=== PATIENT | female | born 1955 | race African-American/Black ===

== ENCOUNTER 2016-12-20 10:46 | Emergency (ER) | payer MEDICAID ==
[~2016-12-20] VITALS: Ht 170.2 cm; Wt 127.5 kg
[2016-12-20 10:54] VITALS: BP 140/88
[2016-12-20] MEDS ORDERED: PROMETHAZINE-C118 M1 ORAL (10:56)
[2016-12-20] MEDS ORDERED: AZITHROMYCIN250 MG ORAL (10:56)
[2016-12-20 11:09] VITALS: BP 140/88
[2016-12-20] MEDS ORDERED: SPIRONOLACTONE100 MG ORAL (11:14)
[2016-12-20] MEDS ORDERED: ASPIRIN81 MG ORAL (11:14)
[2016-12-20] MEDS ORDERED: METOPROLOL TART25 MG ORAL (11:14)
[2016-12-20] MEDS ORDERED: CATAPRES0.3 MG ORAL (11:14)
[2016-12-20] MEDS ORDERED: LISINOPRIL5 MG ORAL (11:14)
[2016-12-20] MEDS ORDERED: METFORMIN HCL500 M1 ORAL (11:14)
[2016-12-20] MEDS ORDERED: [UNRECOGNIZED DRUG - REMARK] (11:14)
--- NOTE | 2016-12-20 11:48 | Emergency Room Report ---
History of Present Illness General Chief Complaint: Upper Respiratory Illness Source: Patient, EMS Present Illness HPI 61-year-old female presents to ED for evaluation. Per EMS patient called 911 because she was having cough with weakness x3 days. States she is yellowish phlegm with blood tinge sputum. Notes occasional chills and bodyaches. Denies any fever. Denies chest pain or shortness of breath. Patient states she is homeless and lives outside. Believe she has "walking pneumonia" because she has had this in the past. No other aggravating or relieving factors. Denies any other associated symptoms Allergies: Coded Allergies: No Known Allergies (Unverified , 08/19/12) Patient History Past Medical History: DM, COPD, psych hx Pertinent Family History: none Social History: Denies: alcohol use, drug use, smoking Now: No Immunizations: UTD Reviewed Nursing Documentation: PMH: Agreed, PSxH: Agreed Nursing Documentation-PMH Hx Cardiac Problems: Yes - MURMUR Hx Hypertension: Yes Hx COPD: Yes - BRONCHITIS, SMOKER Hx Diabetes: Yes Hx Gastrointestinal Problems: Yes - VIRAL GE History Of Psychiatric Problem: Yes - Bipolar Review of Systems All Other Systems: negative except mentioned in HPI Physical Exam Vital Signs Date Time Temp Pulse Resp B/P Pulse Ox O2 Delivery O2 Flow Rate FiO2 12/20/16 10:32 98.1 100 16 140/88 100 Room Air Sp02 EP Interpretation: reviewed, normal General Appearance: no apparent distress, alert, GCS 15, non-toxic Head: normocephalic, atraumatic Eyes: bilateral eye PERRL, bilateral eye normal inspection ENT: hearing grossly normal, normal pharynx, no angioedema, normal voice Neck: full range of motion, supple/symm/no masses Respiratory: chest non-tender, lungs clear, normal breath sounds, speaking full sentences Cardiovascular #1: regular rate, rhythm, no edema Cardiovascular #2: 2+ carotid (R), 2+ carotid (L), 2+ radial (R), 2+ radial (L) , 2+ dorsalis pedis (R), 2+ dorsalis pedis (L) Gastrointestinal: normal bowel sounds, non tender, soft, non-distended, no guarding, no rebound Rectal: deferred Genitourinary: normal inspection, no CVA tenderness Musculoskeletal: back normal, gait/station normal, normal range of motion, non- tender Neurologic: alert, oriented x3, responsive, motor strength/tone normal, sensory intact, speech normal Psychiatric: judgement/insight normal, memory normal, mood/affect normal, no suicidal/homicidal ideation Reflexes: 3+ bicep (R), 3+ bicep (L), 3+ tricep (R), 3+ tricep (L), 3+ knee (R) , 3+ knee (L) Skin: normal color, no rash, warm/dry, well hydrated Lymphatic: no adenopathy Medical Decision Making Diagnostic Impression: Primary Impression: Atypical pneumonia ER Course Hospital Course 61-year-old female presents to ED complaining of cough, bodyaches Differential diagnoses include: URI, pharyngitis, otitis media, asthma Clinical course Patient placed on stretcher. After initial history, physical exam reveals an elderly female in no acute distress. Bilateral TM unremarkable. No pharyngeal erythema. No tonsillar exudates. No lymphadenopathy. lungs clear. abdomen soft. Given age and presentation, patient living in assisted; we will treat as atypical pneumonia and prescribe antibiotics Diagnosis - atypical pneumonia Stable and discharged home with Rx Manuel. Instructed to followup with PMD. Return to ED if symptoms recur or worsen Last Vital Signs Date Time Temp Pulse Resp B/P Pulse Ox O2 Delivery O2 Flow Rate FiO2 12/20/16 11:09 98.1 100 16 140/88 100 Room Air Status: improved Disposition: HOME, SELF-CARE Condition: Stable Scripts Codeine/Promethazine Hcl* (PROMETHAZINE-CODEINE SYRUP*) 118 Ml Syrup 5 ML ORAL Q6H Y for For Cough for 7 Days, ML 0 Refills Prov: LEATHA FLOWERS M.D. 12/20/16 Azithromycin* (ZITHROMAX*) 250 Mg Tablet 250 MG ORAL DAILY, #6 TAB 0 Refills Take two tablets by mouth today, then take one tablet by mouth daily for four days Prov: LEATHA FLOWERS M.D. 12/20/16 Patient Instructions: Community-Acquired Pneumonia, Adult, [id number] LEATHA FLOWERS M.D. Dec 20, 2016 11:47
== END 2016-12-20 11:09 | disposition home or self-care (01) ==
LOC: EDBD 10:46 → EMR 10:50
DX: J18.9 Pneumonia, unspecified organism (principal); J44.9 Chronic obstructive pulmonary disease, unspecified; I10 Essential (primary) hypertension; E11.9 Type 2 diabetes mellitus without complications; F31.9 Bipolar disorder, unspecified
CPT/HCPCS: 99284

== ENCOUNTER 2017-07-07 19:14 | Emergency (ER) | payer MEDICAID ==
[~2017-07-07] VITALS: Ht 170.2 cm; Wt 127.5 kg
[~2017-07-07 19:14] MED LIST: ASPIRIN81 MG ORAL; AZITHROMYCIN250 MG ORAL; CATAPRES0.3 MG ORAL; LISINOPRIL5 MG ORAL; METFORMIN HCL500 M1 ORAL; METOPROLOL TART25 MG ORAL; PROMETHAZINE-C118 M1 ORAL; SPIRONOLACTONE100 MG ORAL; [UNRECOGNIZED DRUG - REMARK]
[2017-07-07] MEDS ORDERED: DEPAKOTE250 MG PO (19:25)
[2017-07-07] MEDS ORDERED: QUETIAPINE FUM400 MG ORAL (19:25)
[2017-07-07] MEDS ORDERED: DOCUSATE SODIU100 MG ORAL (19:25)
[2017-07-07] MEDS ORDERED: FUROSEMIDE40 MG ORAL (19:25)
[2017-07-07] MEDS ORDERED: KLONOPIN1 MG ORAL (19:25)
[2017-07-07 19:29] VITALS: BP 156/97
[2017-07-07] MEDS ORDERED: LORazepam 1mg tab ORAL ONE (19:30)
[2017-07-07 22:05] VITALS: BP 156/97
--- NOTE | 2017-07-10 12:16 | Emergency Room Report ---
History of Present Illness General Chief Complaint: General Complaint Source: EMS Present Illness HPI The patient is a 61-year-old female with a history of schizophrenia presenting for feelings of anxiety and auditory hallucinations. She states that she was just discharged from a psychiatric facility today but does not want to go back to her house. She states that she is hearing her siblings express hate towards her. She denies HI or SI. She states she does not want to return to her home because "it is a whore house and everyone is doing illegal things." She denies any pain. She denies other complaints including N, V, F, CP, SOB Allergies: Coded Allergies: No Known Allergies (Unverified , 08/19/12) Patient History Past Medical History: see triage record Pertinent Family History: none Reviewed Nursing Documentation: PMH: Agreed, PSxH: Agreed Nursing Documentation-PMH Hx Cardiac Problems: Yes - CHF Hx Hypertension: Yes Hx COPD: Yes - BRONCHITIS, SMOKER Hx Diabetes: Yes Hx Gastrointestinal Problems: Yes - VIRAL GE History Of Psychiatric Problem: Yes - Bipolar; Schizophrenic Hx Seizures: Yes Review of Systems All Other Systems: negative except mentioned in HPI Physical Exam Vital Signs Date Time Temp Pulse Resp B/P (MAP) Pulse Ox O2 Delivery O2 Flow Rate FiO2 07/07/17 19:06 98.2 100 18 156/97 98 Room Air Sp02 EP Interpretation: reviewed, normal General Appearance: no apparent distress, alert, GCS 15, non-toxic Head: normocephalic, atraumatic Eyes: bilateral eye normal inspection, bilateral eye PERRL ENT: hearing grossly normal, normal pharynx, no angioedema, normal voice Neck: full range of motion, supple/symm/no masses Respiratory: chest non-tender, lungs clear, normal breath sounds, speaking full sentences Cardiovascular #1: regular rate, rhythm, no edema Musculoskeletal: back normal, gait/station normal, normal range of motion, non- tender Neurologic: alert, oriented x3, responsive, motor strength/tone normal, sensory intact, speech normal Psychiatric: judgement/insight normal, memory normal, mood/affect normal, no suicidal/homicidal ideation Skin: normal color, no rash, warm/dry, well hydrated Medical Decision Making PA Attestation Dr. Sinclair is my supervising physician. Patient management was discussed with my supervising physician Diagnostic Impression: Primary Impression: Anxiety ER Course The patient is a 61 yo F presenting for anxiety. Differential diagnoses considered but not limited to suicidal ideation, homicidal ideation, depression, anxiety, among others PE: NAD. Resting on bed. RRR. Lungs CTA bilat Pt requesting food. [place] given. She is given one dose of ativan and is given time to rest in the ER. She will be DC'ed home and needs to FU with psychiatry. She agrees. ER precautions given Last Vital Signs Date Time Temp Pulse Resp B/P (MAP) Pulse Ox O2 Delivery O2 Flow Rate FiO2 07/07/17 22:05 98.2 18 156/97 98 Room Air 07/07/17 19:06 100 Status: improved Disposition: HOME, SELF-CARE Condition: Improved Patient Instructions: Panic Attacks Additional Instructions: I discussed my findings with the patient. All questions and concerns have been answered. Treatment and medication compliance have been addressed. I advised the patient that they need to follow up with PMD in 3-5 days. Return to ED if symptoms worsen, new symptoms arise, or if needed for any reason. Patient verbalized understanding of discharge instructions. Please see psychiatrist ERIK. Information given. LINDA OEDN Jul 10, 2017 12:16
== END 2017-07-07 22:05 | disposition home or self-care (01) ==
LOC: EDBD 19:14 → EMR 19:25
DX: F41.9 Anxiety disorder, unspecified (principal); F31.9 Bipolar disorder, unspecified; F20.9 Schizophrenia, unspecified; E11.9 Type 2 diabetes mellitus without complications; J44.9 Chronic obstructive pulmonary disease, unspecified; I10 Essential (primary) hypertension; I50.9 Heart failure, unspecified
CPT/HCPCS: 99284

== ENCOUNTER 2017-12-21 20:06 | Inpatient (IN) | payer MEDICAID ==
[~2017-12-21] VITALS: Ht 170.2 cm; Wt 123.5 kg
[~2017-12-21 20:06] MED LIST changes: +CATAPRES0.1 MG ORAL; +DEPAKOTE250 MG PO; +DOCUSATE SODIU100 MG ORAL; +FUROSEMIDE40 MG ORAL; +KLONOPIN1 MG ORAL; +QUETIAPINE FUM400 MG ORAL
[2017-12-21 20:15] VITALS: BP 155/97
[2017-12-21] MEDS ORDERED: HYDROcodone/Acetamin 10/325 tab ORAL ONE (20:45)
[2017-12-21] MEDS ORDERED: Morphine Sulfate 4mg/ml Inj IM ONE (21:00)
[2017-12-21 21:15] VITALS: BP 189/90
[2017-12-21 22:15] VITALS: BP 170/88
[2017-12-21] MEDS ORDERED: cloNIDine 0.2mg Tab ORAL ONE (22:15)
[2017-12-21] MEDS ORDERED: Nitroglycerin 2% oint pkt TOPIC ONE (22:15)
[2017-12-21] MEDS ORDERED: Albuterol/Ipratropium 3ml neb HHN PRN (23:00)
[2017-12-21] MEDS ORDERED: Enalaprilat 2.5mg/2ml Inj IV PRN (23:00)
[2017-12-21] MEDS ORDERED: Ketorolac 30mg Inj IV PRN (23:00)
[2017-12-21] MEDS ORDERED: Miralax 17gm pkt ORAL PRN (23:00)
[2017-12-21] MEDS ORDERED: Nitroglycerin Subl 0.4mg tab SL PRN (23:00)
[2017-12-21] MEDS ORDERED: dilTIAZem HCl 25mg/5ml Inj IV PRN (23:00)
[2017-12-21 23:15] VITALS: BP 215/112
[2017-12-21] MEDS ORDERED: Nitroglycerin 50mg/250ml btl 250 ML IV SCH (23:15)
--- NOTE | 2017-12-21 23:30 | Emergency Room Report ---
History of Present Illness General Chief Complaint: Chest Pain Source: Patient Present Illness HPI Patient presents from urgent care with complaints of chest pain Upon arrival to patient reports that she was at [facility] for over 7 days Was found to have fluid in her lungs as well Denies any vomiting or diarrhea Initially denied any shortness of breath however during her stay has become more short of breath Patient also reports noncompliance with her blood pressure medication denies any fevers or chills Pain was midsternal /10 sharp Denies any back or flank pain Allergies: Coded Allergies: No Known Allergies (Unverified , 08/19/12) Patient History Past Medical History: see triage record Pertinent Family History: none Reviewed Nursing Documentation: PMH: Agreed, PSxH: Agreed Nursing Documentation-PMH Past Medical History: No History, Except For Hx Cardiac Problems: Yes - CHF Hx Hypertension: Yes Hx COPD: Yes - BRONCHITIS, SMOKER Hx Diabetes: Yes Hx Gastrointestinal Problems: Yes - VIRAL GE Hx Seizures: Yes Review of Systems All Other Systems: negative except mentioned in HPI Physical Exam Vital Signs Date Time Temp Pulse Resp B/P (MAP) Pulse Ox O2 Delivery O2 Flow Rate FiO2 12/21/17 19:59 99.1 86 20 155/97 99 Room Air Sp02 EP Interpretation: reviewed, normal General Appearance: no apparent distress - Upon initial arrival however after further ambulation and use the restroom in the ER the patient became diaphoretic tachypneic and short of breath Head: normocephalic, atraumatic Eyes: bilateral eye PERRL, bilateral eye EOMI ENT: hearing grossly normal, normal pharynx, TMs + canals normal, uvula midline Neck: full range of motion, supple, no meningismus, no bony tend Respiratory: no respiratory distress, no retraction, no accessory muscle use, crackles - Bilaterally Cardiovascular #1: normal peripheral pulses, regular rate, rhythm, no gallop, no JVD, no murmur Gastrointestinal: normal bowel sounds, non tender, soft, no mass, no organomegaly, non-distended, no guarding, no hernia, no pulsatile mass, no rebound Genitourinary: no CVA tenderness Musculoskeletal: normal inspection Neurologic: oriented x3, responsive, 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, motor strength/ tone normal, sensory intact Psychiatric: mood/affect normal Skin: normal color, no rash, warm/dry, palpation normal Lymphatic: normal inspection, no adenopathy Procedures Critical Care Time Critical Care Time 50 minutes for multiple re\re evaluations Rapid deterioration concern for cardiopulmonary arrest not including any procedural time, Central Line Central Line : Consent: Written Central Line Lumen: triple Maximal Sterile Barrier Tech: yes cap, yes mask, yes sterile gown, yes sterile gloves, yes large sterile sheet, yes hand hygiene, yes chlorhexidine prep Central Line Postion: femoral (R) Anesthesia: Lidocaine cc's of anesthesia: 5 Complications: none Central Line Post Position: sutured Attempts: One Patient Tolerated: Well Complications: None Medical Decision Making Diagnostic Impression: Primary Impression: CHF (congestive heart failure) Additional Impression: ACS (acute coronary syndrome) ER Course Patient is a fairly complex patient with multiple differential to consideration including but not limited to cardiac cardiopulmonary and vascular emergencies Patient initially was ambulating in the emergency room Did not show signs of obvious shortness of breath However I was called to bedside as the patient had become more hypotensive and appeared to be short of breath On reevaluation patient had acutely decompensated At this time requiring central line placement Diuretics and Gómez catheter placement patient is unstable for transfer at this time 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 and admitted to ICU for further care Labs Test 12/21/17 22:10 12/21/17 23:10 12/22/17 04:00 12/22/17 07:00 Urine Opiates Screen Negative (NEGATIVE) Positive (NEGATIVE) Urine Barbiturates Screen Negative (NEGATIVE) Negative (NEGATIVE) Phencyclidine (PCP) Screen Negative (NEGATIVE) Negative (NEGATIVE) Urine Amphetamines Screen Negative (NEGATIVE) Negative (NEGATIVE) Urine Benzodiazepines Screen Negative (NEGATIVE) Negative (NEGATIVE) Urine Cocaine Screen Negative (NEGATIVE) Negative (NEGATIVE) Urine Marijuana (THC) Screen Negative (NEGATIVE) Negative (NEGATIVE) Sodium Level 138 MMOL/L (136-145) Potassium Level 4.3 MMOL/L (3.5-5.1) Chloride Level 101 MMOL/L (98-107) Carbon Dioxide Level 31 MMOL/L (21-32) Anion Gap 6 mmol/L (5-15) Blood Urea Nitrogen 18 mg/dL (7-18) Creatinine 1.0 MG/DL (0.55-1.30) Estimat Glomerular Filtration Rate > 60 mL/min (>60) Glucose Level 176 MG/DL (74-106) Lactic Acid Level 2.40 mmol/L (0.66-2.22) 1.20 mmol/L (0.66-2.22) Calcium Level 10.6 MG/DL (8.5-10.1) Total Bilirubin 0.6 MG/DL (0.2-1.0) Aspartate Amino Transf (AST/SGOT) 32 U/L (15-37) Alanine Aminotransferase (ALT/SGPT) 37 U/L (12-78) Alkaline Phosphatase 88 U/L (46-116) Total Creatine Kinase 74 U/L (26-308) Creatine Kinase MB 0.5 NG/ML (0.0-3.6) Creatine Kinase MB Relative Index 0.6 Troponin I 0.022 ng/mL (0.000-0.056) 0.017 ng/mL (0.000-0.056) Pro-B-Type Natriuretic Peptide 3252 pg/mL (0-125) Total Protein 9.1 G/DL (6.4-8.2) Albumin 3.8 G/DL (3.4-5.0) Globulin 5.3 g/dL Albumin/Globulin Ratio 0.7 (1.0-2.7) Lipase 77 U/L (73-393) White Blood Count 5.6 K/UL (4.8-10.8) Red Blood Count 4.12 M/UL (4.20-5.40) Hemoglobin 10.7 G/DL (12.0-16.0) Hematocrit 35.5 % (37.0-47.0) Mean Corpuscular Volume 86 FL (80-99) Mean Corpuscular Hemoglobin 25.9 PG (27.0-31.0) Mean Corpuscular Hemoglobin Concent 30.1 G/DL (32.0-36.0) Red Cell Distribution Width 14.6 % (11.6-14.8) Platelet Count 281 K/UL (150-450) Mean Platelet Volume 8.5 FL (6.5-10.1) Neutrophils (%) (Auto) 43.2 % (45.0-75.0) Lymphocytes (%) (Auto) 46.1 % (20.0-45.0) Monocytes (%) (Auto) 8.8 % (1.0-10.0) Eosinophils (%) (Auto) 0.9 % (0.0-3.0) Basophils (%) (Auto) 1.1 % (0.0-2.0) Prothrombin Time 10.5 SEC (9.30-11.50) Prothromb Time International Ratio 1.0 (0.9-1.1) Activated Partial Thromboplast Time 24 SEC (23-33) Arterial Blood pH 7.393 (7.350-7.450) Arterial Blood Partial Pressure CO2 50.5 mmHg (35.0-45.0) Arterial Blood Partial Pressure O2 93.9 mmHg (75.0-100.0) Arterial Blood HCO3 30.1 mmol/L (22.0-26.0) Arterial Blood Oxygen Saturation 96.9 % (92.0-98.0) Arterial Blood Base Excess 4.3 Earl Test Positive C-Reactive Protein, Quantitative < 0.4 mg/dL (0.00-0.90) Triglycerides Level 109 MG/DL (30-150) Cholesterol Level 201 MG/DL (< 200) LDL Cholesterol 138 mg/dL (<100) HDL Cholesterol 47 MG/DL (40-60) Cholesterol/HDL Ratio 4.3 (3.3-4.4) Thyroid Stimulating Hormone (TSH) 1.742 uiU/mL (0.358-3.740) Test 12/22/17 15:00 Troponin I 0.024 ng/mL (0.000-0.056) Rhythm Strip Diag. Results EP Interpretation: yes Rate: 87 Rhythm: NSR, no PVC's, no ectopy Chest X-Ray Diagnostic Results Chest X-Ray Diagnostic Results : Chest X-Ray Ordered: Yes # of Views/Limited/Complete: 1 View Indication: Chest Pain EP Interpretation: Yes Interpretation: no consolidation, no pneumothorax, other - Cardiomegaly with pulmonary congestion Impression: Other - CHF Electronically Signed by: Devante Saunders DO Last Vital Signs Date Time Temp Pulse Resp B/P (MAP) Pulse Ox O2 Delivery O2 Flow Rate FiO2 12/21/17 22:26 198/90 12/21/17 21:31 99.1 12/21/17 19:59 86 20 99 Room Air Status: improved Disposition: ADMITTED INPATIENT Condition: Critical Referrals: NON PHYSICIAN (PCP) DEVANTE SAUNDERS D.O. Dec 21, 2017 23:30
[2017-12-21] MEDS ORDERED: cefTRIAXone 1 GM in NS 55 ML IVPB ONE (23:45)
[2017-12-21 23:57] LABS: ANION GAP 6 mmol/L (5-15); BLOOD UREA NITROGEN 18 mg/dL (7-18); CALCIUM 10.6 MG/DL (8.5-10.1); CARBON DIOXIDE 31 MMOL/L (21-32); CHLORIDE 101 MMOL/L (98-107); POTASSIUM 4.3 MMOL/L (3.5-5.1); SODIUM 138 MMOL/L (136-145)
[2017-12-22] VITALS (49 sets, daily range): BP systolic 98–171; BP diastolic 45–103
[2017-12-22 00:16] LABS: ALANINE AMINOTRANSFERASE 37 U/L (12-78); ALBUMIN 3.8 G/DL (3.4-5.0); ALBUMIN/GLOBULIN RATIO 0.7 (1.0-2.7); ALKALINE PHOSPHATASE 88 U/L (46-116); ASPARTATE AMINO TRANSFERASE 32 U/L (15-37); BILIRUBIN,TOTAL 0.6 MG/DL (0.2-1.0); CKMB 0.5 NG/ML (0.0-3.6); CREATINE KINASE 74 U/L (26-308)
[2017-12-22] MEDS: Morphine Sulfate 2mg/ml Inj IVP PRN ×4 (03:19→19:07)
[2017-12-22] MEDS: NovoLOG Insulin Flexpen SUBQ SCH ×4 (06:24→20:50)
[2017-12-22] MEDS ORDERED: Nitroglycerin 50mg/250ml btl 250 ML IV SCH (06:45)
[2017-12-22] MEDS: Heparin 5000 units/ml inj SUBQ SCH ×3 (07:56→23:06)
[2017-12-22 07:57] LABS: BASOPHILS % (AUTO) 1.1 % (0.0-2.0); EOSINOPHILS % (AUTO) 0.9 % (0.0-3.0); HEMATOCRIT 35.5 % (37.0-47.0); HEMOGLOBIN 10.7 G/DL (12.0-16.0); LYMPHOCYTES % (AUTO) 46.1 % (20.0-45.0); MEAN CORPUSCULAR VOLUME 86 FL (80-99); MONOCYTES % (AUTO) 8.8 % (1.0-10.0); NEUTROPHILS % (AUTO) 43.2 % (45.0-75.0); PLATELET COUNT 281 K/UL (150-450); RED BLOOD COUNT 4.12 M/UL (4.20-5.40); RED CELL DISTRIBUTION WIDTH 14.6 % (11.6-14.8); WHITE BLOOD COUNT 5.6 K/UL (4.8-10.8)
[2017-12-22] MEDS: Metoprolol 25mg tab ORAL SCH ×2 (08:52→20:49)
[2017-12-22 08:54] LABS: CHOLESTEROL 201 MG/DL (< 200); HDL CHOLESTEROL 47 MG/DL (40-60); TRIGLYCERIDES 109 MG/DL (30-150)
[2017-12-22] MEDS ORDERED: Lisinopril 10mg tab ORAL SCH (09:00)
[2017-12-22] MEDS ORDERED: QUEtiapine 200mg tab ORAL SCH ×2 (09:00→19:30)
[2017-12-22] MEDS ORDERED: Aspirin Baby 81mg ORAL SCH (09:00)
--- NOTE | 2017-12-22 09:18 | History and Physical ---
History of Present Illness General Date patient seen: Dec 22, 2017 Reason for Hospitalization: Chest Pain Present Illness HPI 62 year old female with hx of HTN, COPD, CHF, presented from [facility] urgent care with complaints of chest pain. she was at [facility] for over 7 days and Was found to have fluid in her lungs as well. She become more short of breath in ER and her SBP jumped to 220. she was started on nitro drip and transferred to ICU. Patient also reports noncompliance with her blood pressure medication denies any fevers or chills. Allergies: Coded Allergies: No Known Allergies (Unverified , 08/19/12) Medication History Scheduled Aspirin* (Aspirin*), 81 MG ORAL DAILY, (Reported) Azithromycin* (Zithromax*), 250 MG ORAL DAILY Clonazepam* (Klonopin*), 2 MG ORAL Q8HR, (Reported) Clonidine Hcl* (Catapres*), 0.3 MG ORAL DAILY, (Reported) Clonidine Hcl* (Catapres*), 0.1 MG ORAL EVERY 6 HOURS, (Reported) Divalproex Sodium* (Depakote*), 250 MG PO Q12HR, (Reported) Docusate Sodium* (Docusate Sodium*), 100 MG ORAL BEDTIME, (Reported) Furosemide* (Lasix*), 40 MG ORAL DAILY, (Reported) Lisinopril (Lisinopril*), 10 MG ORAL DAILY, (Reported) Metformin Hcl* (Metformin Hcl*), 500 MG ORAL TWICE A DAY, (Reported) Metformin Hcl* (Metformin Hcl*), 500 MG ORAL TWICE A DAY, (Reported) Metoprolol Tartrate* (Metoprolol Tartrate*), 25 MG ORAL EVERY 12 HOURS, ( Reported) Quetiapine Fumarate* (Quetiapine Fumarate*), 200 MG ORAL DAILY, (Reported) Spironolactone* (Spironolactone*), Unknown Dose ORAL DAILY, (Reported) Scheduled PRN Codeine/Promethazine Hcl* (Promethazine-Codeine Syrup*), 5 ML ORAL Q6H PRN for For Cough Miscellaneous Medications ["depression pill"], (Reported) Patient History Healthcare decision maker Resuscitation status Full Code Advanced Directive on File No Review of Systems Respiratory: Reports: shortness of breath Cardiovascular: Reports: chest pain Physical Exam General Appearance: WD/WN Lines, tubes and drains: peripheral HEENT: normocephalic Neck: normal alignment Respiratory/Chest: chest wall non-tender Breasts: no masses Cardiovascular/Chest: normal peripheral pulses Abdomen: normal bowel sounds Genitourinary/Rectal: normal rectal exam Last 24 Hour Vital Signs Date Time Temp Pulse Resp B/P (MAP) Pulse Ox O2 Delivery O2 Flow Rate FiO2 12/22/17 08:52 81 145/79 12/22/17 08:52 145/79 12/22/17 07:00 76 16 144/71 99 Nasal Cannula 2.0 12/22/17 06:48 154/102 12/22/17 06:30 78 16 154/102 100 Nasal Cannula 2.0 12/22/17 06:00 76 16 145/95 100 Nasal Cannula 2.0 12/22/17 05:30 79 15 131/81 100 Nasal Cannula 2.0 12/22/17 05:15 85 17 99 2.0 12/22/17 05:00 81 15 163/92 93 Nasal Cannula 2.0 12/22/17 04:30 67 15 138/73 93 Nasal Cannula 2.0 12/22/17 04:00 98.0 74 16 152/74 97 Nasal Cannula 2.0 12/22/17 04:00 2.0 12/22/17 04:00 76 12/22/17 03:49 98.0 12/22/17 03:30 74 20 146/73 94 Nasal Cannula 2.0 12/22/17 03:30 2.0 12/22/17 03:00 79 20 146/89 94 Bi-pap 40 12/22/17 02:56 80 16 95 4.0 12/22/17 02:30 78 20 147/82 94 Bi-pap 40 12/22/17 02:00 74 20 148/81 94 Bi-pap 40 12/22/17 01:30 80 20 139/85 94 Bi-pap 40 12/22/17 01:30 79 12/22/17 01:21 83 16 98 Facial 40 12/22/17 01:05 40 12/22/17 01:05 97.6 85 17 159/97 94 Bi-pap 15.0 40 12/22/17 00:43 98.8 101 20 155/83 100 Bi-pap 15.0 40 12/22/17 00:14 98.8 101 20 155/83 100 Bi-pap 15.0 40 12/21/17 23:54 118 32 97 Facial 40 12/21/17 23:52 118 31 Non-Rebreather 15.0 100 12/21/17 23:48 189/154 12/21/17 23:15 98.8 96 26 215/112 99 Room Air 12/21/17 23:00 100 12/21/17 22:26 198/90 12/21/17 22:24 198/102 12/21/17 22:15 98.8 91 26 170/88 99 Room Air 12/21/17 21:31 99.1 12/21/17 21:31 99.1 12/21/17 21:15 98.9 91 26 189/90 99 Room Air 12/21/17 20:15 86 26 Room Air 12/21/17 20:15 99.1 86 26 155/97 99 Room Air 12/21/17 19:59 99.1 86 20 155/97 99 Room Air Intake and Output 12/21/17 12/22/17 19:00 07:00 Intake Total 4.5 ml Output Total 1660 ml Balance -1655.5 ml Intake IV Total 4.5 ml Output Urine Total 1660 ml # Voids 1 Laboratory Tests Test 12/21/17 22:10 12/21/17 23:10 12/22/17 04:00 12/22/17 07:00 Urine Opiates Screen Negative (NEGATIVE) Positive (NEGATIVE) H Urine Barbiturates Screen Negative (NEGATIVE) Negative (NEGATIVE) Phencyclidine (PCP) Screen Negative (NEGATIVE) Negative (NEGATIVE) Urine Amphetamines Screen Negative (NEGATIVE) Negative (NEGATIVE) Urine Benzodiazepines Screen Negative (NEGATIVE) Negative (NEGATIVE) Urine Cocaine Screen Negative (NEGATIVE) Negative (NEGATIVE) Urine Marijuana (THC) Screen Negative (NEGATIVE) Negative (NEGATIVE) Sodium Level 138 MMOL/L (136-145) Potassium Level 4.3 MMOL/L (3.5-5.1) Chloride Level 101 MMOL/L (98-107) Carbon Dioxide Level 31 MMOL/L (21-32) Anion Gap 6 mmol/L (5-15) Blood Urea Nitrogen 18 mg/dL (7-18) Creatinine 1.0 MG/DL (0.55-1.30) Estimat Glomerular Filtration Rate > 60 mL/min (>60) Glucose Level 176 MG/DL (74-106) H Lactic Acid Level 2.40 mmol/L (0.66-2.22) H 1.20 mmol/L (0.66-2.22) Calcium Level 10.6 MG/DL (8.5-10.1) H Total Bilirubin 0.6 MG/DL (0.2-1.0) Aspartate Amino Transf (AST/SGOT) 32 U/L (15-37) Alanine Aminotransferase (ALT/SGPT) 37 U/L (12-78) Alkaline Phosphatase 88 U/L (46-116) Total Creatine Kinase 74 U/L (26-308) Creatine Kinase MB 0.5 NG/ML (0.0-3.6) Creatine Kinase MB Relative Index 0.6 Troponin I 0.022 ng/mL (0.000-0.056) 0.017 ng/mL (0.000-0.056) Pro-B-Type Natriuretic Peptide 3252 pg/mL (0-125) H Total Protein 9.1 G/DL (6.4-8.2) H Albumin 3.8 G/DL (3.4-5.0) Globulin 5.3 g/dL Albumin/Globulin Ratio 0.7 (1.0-2.7) L Lipase 77 U/L (73-393) White Blood Count 5.6 K/UL (4.8-10.8) Red Blood Count 4.12 M/UL (4.20-5.40) L Hemoglobin 10.7 G/DL (12.0-16.0) L Hematocrit 35.5 % (37.0-47.0) L Mean Corpuscular Volume 86 FL (80-99) Mean Corpuscular Hemoglobin 25.9 PG (27.0-31.0) L Mean Corpuscular Hemoglobin Concent 30.1 G/DL (32.0-36.0) L Red Cell Distribution Width 14.6 % (11.6-14.8) Platelet Count 281 K/UL (150-450) Mean Platelet Volume 8.5 FL (6.5-10.1) Neutrophils (%) (Auto) 43.2 % (45.0-75.0) L Lymphocytes (%) (Auto) 46.1 % (20.0-45.0) H Monocytes (%) (Auto) 8.8 % (1.0-10.0) Eosinophils (%) (Auto) 0.9 % (0.0-3.0) Basophils (%) (Auto) 1.1 % (0.0-2.0) Prothrombin Time 10.5 SEC (9.30-11.50) Prothromb Time International Ratio 1.0 (0.9-1.1) Activated Partial Thromboplast Time 24 SEC (23-33) C-Reactive Protein, Quantitative < 0.4 mg/dL (0.00-0.90) Triglycerides Level 109 MG/DL (30-150) Cholesterol Level 201 MG/DL (< 200) H LDL Cholesterol 138 mg/dL (<100) H HDL Cholesterol 47 MG/DL (40-60) Cholesterol/HDL Ratio 4.3 (3.3-4.4) Thyroid Stimulating Hormone (TSH) 1.742 uiU/mL (0.358-3.740) Height (Feet): 5 Height (Inches): 7.00 Weight (Pounds): 272 Medications Current Medications Medications (Trade) Dose Ordered Sig/Kiko Route PRN Reason Start Time Stop Time Status Last Admin Dose Admin Acetaminophen (Tylenol) 650 mg Q4H PRN ORAL FEVER 12/21/17 23:00 01/20/18 22:59 Albuterol/ Ipratropium (Albuterol/ Ipratropium) 3 ml EVERY 4 HOURS PRN HHN Shortness of Breath 12/21/17 23:00 12/26/17 22:59 Aspirin (ASA) 162 mg DAILY ORAL 12/22/17 09:00 01/21/18 08:59 12/22/17 08:52 Chlorhexidine Gluconate (Janette-Hex 2%) 1 applic DAILY@2000 TOPIC 12/22/17 20:00 01/21/18 19:59 Clonazepam (KlonoPIN) 2 mg Q8HR ORAL 12/22/17 06:00 12/29/17 05:59 12/22/17 06:23 Dextrose (Dextrose 50%) STAT PRN IV Hypoglycemia 12/21/17 23:00 01/20/18 22:59 Diltiazem HCl (Cardizem) 10 mg EVERY HOUR PRN IV heart rate more than 120, 12/21/17 23:00 01/20/18 22:59 Divalproex Sodium (Depakote) 250 mg Q12HR ORAL 12/22/17 09:00 01/21/18 08:59 Enalaprilat (Vasotec) 2.5 mg EVERY 6 HOURS PRN IV sbp more than 160 12/21/17 23:00 01/20/18 22:59 Heparin Sodium (Porcine) (Heparin 5000 units/ml) 5,000 units Q8H SUBQ 12/22/17 07:30 01/21/18 07:29 12/22/17 07:56 Insulin Aspart (NovoLOG) BEFORE MEALS AND HS SUBQ 12/22/17 06:30 01/21/18 06:29 12/22/17 06:24 Ketorolac Tromethamine (Toradol 30mg) 30 mg Q6HR PRN IV moderate pain ( 4-6) 12/21/17 23:00 12/26/17 22:59 Lisinopril (Zestril) 10 mg DAILY ORAL 12/22/17 09:00 01/21/18 08:59 12/22/17 08:52 Metoprolol Tartrate (Lopressor) 25 mg EVERY 12 HOURS ORAL 12/22/17 09:00 01/21/18 08:59 12/22/17 08:52 Morphine Sulfate (Morphine Sulfate) 2 mg EVERY 4 HOURS PRN IVP severe Pain (Pain Scale 7-10) 12/21/17 23:00 12/28/17 22:59 12/22/17 07:55 Nitroglycerin 250 ml @ 0 mls/hr Q24H IV 12/22/17 06:45 01/21/18 06:44 12/22/17 06:48 Nitroglycerin (Ntg) 0.4 mg Q5M PRN SL Prn Chest Pain 12/21/17 23:00 01/20/18 22:59 Ondansetron HCl (Zofran) 4 mg Q6H PRN IVP Nausea & Vomiting 12/21/17 23:00 01/20/18 22:59 Pantoprazole (Protonix) 40 mg DAILY ORAL 12/22/17 09:00 01/21/18 08:59 12/22/17 08:51 Polyethylene Glycol (Miralax) 17 gm DAILYPRN PRN ORAL Constipation 12/21/17 23:00 01/20/18 22:59 Quetiapine Fumarate (SEROquel) 200 mg DAILY ORAL 12/22/17 09:00 01/21/18 08:59 Temazepam (Restoril) 15 mg HSPRN PRN ORAL Insomnia 12/21/17 23:00 12/28/17 22:59 Assessment/Plan Problem List: (1) ACS (acute coronary syndrome) ICD Codes: I24.9 - Acute ischemic heart disease, unspecified SNOMED: 314976077 (2) CHF (congestive heart failure) ICD Codes: I50.9 - Heart failure, unspecified SNOMED: 98016492 (3) Hypertensive emergency ICD Codes: I16.1 - Hypertensive emergency SNOMED: 097557245696536 (4) Diabetes mellitus ICD Codes: E11.9 - Type 2 diabetes mellitus without complications SNOMED: 39848304 Assessment/Plan taper off nitro drip echo troponin cardio to see sliding scale respiratory treatment. SRAVANI PAK Dec 22, 2017 09:18
--- NOTE | 2017-12-22 12:04 | Diagnostic Imaging Report ---
Indication: Chest pain Technique: One view of the chest Comparison: 08/19/2012 Findings: Heart is enlarged. There is interstitial congestion now present. Pleural spaces are grossly clear Impression: Cardiomegaly and interstitial edema
--- NOTE | 2017-12-22 17:04 | Cardiology Report ---
APPROVED REPORT EXAM: Two-dimensional and M-mode echocardiogram with Doppler and color Doppler. INDICATION Left Ventricular Function M-Mode DIMENSIONS IVSd1.6 (0.7-1.1cm)Left Atrium (MM)3.7 (1.6-4.0cm) LVDd4.9 (3.5-5.6cm)Aortic Root2.5 (2.0-3.7cm) PWd1.4 (0.7-1.1cm)Aortic Cusp Exc.1.8 (1.5-2.0cm) LVDs3.8 (2.5-4.0cm) PWs2.0 cm Normal left ventricular chamber size. Global left ventricular hypokinesis. Left ventricular ejection fraction estimated to be 35-40 %. Mild left ventricular hypertrophy. No evidence of pericardial effusion. All other cardiac chamber sizes are within normal limits. Mild focal aortic valve sclerosis with adequate cusp excursion. Mildly thickened mitral valve leaflets with minimal excursion. Mild mitral annulus and aortic root calcification. Normal pulmonic valve structure. Normal tricuspid valve structure. IVC is normal in size with physiological collapse. A color flow and spectral Doppler study was performed and revealed: Trace aortic insufficiency. Moderate mitral regurgitation. reduced left ventricular relaxation c/w impaired relaxation diastolic dysfunction. Mild tricuspid regurgitation. Tricuspid systolic velocities suggests peak right ventricular systolic pressure of 42 mmHg, consistent with mild pulmonary hypertension. Moderate pulmonic regurgitation present.
--- NOTE | 2017-12-22 17:13 | Cardiology Report ---
APPROVED REPORT EKG Measurement Heart [id number] Normal sinus rhythm Biatrial enlargement Left ventricular hypertrophy Abnormal ECG
[2017-12-22] MEDS ORDERED: Dyna-Hex 2% Top Sol 2oz TOPIC SCH (20:00)
--- NOTE | 2017-12-22 20:12 | Cardiology Progress Note ---
Assessment/Plan Assessment/Plan [id number] left breast pain all trop neg cm chf htn med noncompliance Objective Last 24 Hour Vital Signs Date Time Temp Pulse Resp B/P (MAP) Pulse Ox O2 Delivery O2 Flow Rate FiO2 12/22/17 19:37 96.7 12/22/17 19:30 76 18 163/72 98 Nasal Cannula 2.0 12/22/17 19:00 80 19 143/66 98 Nasal Cannula 2.0 12/22/17 18:30 77 21 147/81 97 Nasal Cannula 2.0 12/22/17 18:00 88 20 168/87 100 Nasal Cannula 2.0 12/22/17 17:30 80 22 147/64 99 Nasal Cannula 2.0 12/22/17 17:00 70 18 171/91 99 Nasal Cannula 2.0 12/22/17 16:30 69 19 135/66 92 Nasal Cannula 2.0 12/22/17 16:15 73 17 163/95 92 Nasal Cannula 2.0 12/22/17 16:00 2.0 12/22/17 16:00 96.7 72 18 163/75 99 Nasal Cannula 2.0 12/22/17 15:45 73 17 170/92 96 Nasal Cannula 2.0 12/22/17 15:42 67 12/22/17 15:30 69 18 168/92 96 Nasal Cannula 2.0 12/22/17 15:00 79 21 155/86 98 Nasal Cannula 2.0 12/22/17 14:30 70 21 131/57 98 Nasal Cannula 2.0 12/22/17 14:00 75 19 160/97 98 Nasal Cannula 2.0 12/22/17 13:30 77 23 154/103 100 Nasal Cannula 2.0 12/22/17 13:00 86 17 156/77 98 Nasal Cannula 2.0 12/22/17 12:30 80 11 154/72 99 Nasal Cannula 2.0 12/22/17 12:19 83 12/22/17 12:00 97.9 67 14 154/83 98 Nasal Cannula 2.0 12/22/17 12:00 2.0 12/22/17 11:30 71 15 131/71 100 Nasal Cannula 2.0 12/22/17 11:00 69 16 168/89 100 Nasal Cannula 2.0 12/22/17 10:30 74 16 171/76 100 Nasal Cannula 2.0 12/22/17 10:00 77 16 162/87 100 Nasal Cannula 2.0 12/22/17 09:30 76 15 138/58 97 Nasal Cannula 2.0 12/22/17 09:00 75 14 153/64 98 Nasal Cannula 2.0 12/22/17 08:52 81 145/79 12/22/17 08:52 145/79 12/22/17 08:30 78 15 151/88 98 Nasal Cannula 2.0 12/22/17 08:00 97.9 81 15 169/83 98 Nasal Cannula 2.0 12/22/17 08:00 2.0 12/22/17 07:30 78 16 164/86 98 Nasal Cannula 2.0 12/22/17 07:16 78 12/22/17 07:00 76 16 144/71 99 Nasal Cannula 2.0 12/22/17 06:48 154/102 12/22/17 06:45 84 16 99 2.0 12/22/17 06:30 78 16 154/102 100 Nasal Cannula 2.0 12/22/17 06:00 76 16 145/95 100 Nasal Cannula 2.0 12/22/17 05:30 79 15 131/81 100 Nasal Cannula 2.0 12/22/17 05:15 85 17 99 2.0 12/22/17 05:00 81 15 163/92 93 Nasal Cannula 2.0 12/22/17 04:30 67 15 138/73 93 Nasal Cannula 2.0 12/22/17 04:00 98.0 74 16 152/74 97 Nasal Cannula 2.0 12/22/17 04:00 2.0 12/22/17 04:00 76 12/22/17 03:30 74 20 146/73 94 Nasal Cannula 2.0 12/22/17 03:30 2.0 12/22/17 03:00 79 20 146/89 94 Bi-pap 40 12/22/17 02:56 80 16 95 4.0 12/22/17 02:30 78 20 147/82 94 Bi-pap 40 12/22/17 02:00 74 20 148/81 94 Bi-pap 40 12/22/17 01:30 80 20 139/85 94 Bi-pap 40 12/22/17 01:30 79 12/22/17 01:21 83 16 98 Facial 40 12/22/17 01:05 40 12/22/17 01:05 97.6 85 17 159/97 94 Bi-pap 15.0 40 12/22/17 00:43 98.8 101 20 155/83 100 Bi-pap 15.0 40 12/22/17 00:14 98.8 101 20 155/83 100 Bi-pap 15.0 40 12/21/17 23:54 118 32 97 Facial 40 12/21/17 23:52 118 31 Non-Rebreather 15.0 100 12/21/17 23:48 189/154 12/21/17 23:15 98.8 96 26 215/112 99 Room Air 12/21/17 23:00 100 12/21/17 22:26 198/90 12/21/17 22:24 198/102 12/21/17 22:15 98.8 91 26 170/88 99 Room Air 12/21/17 21:31 99.1 12/21/17 21:31 99.1 12/21/17 21:15 98.9 91 26 189/90 99 Room Air 12/21/17 20:15 86 26 Room Air 12/21/17 20:15 99.1 86 26 155/97 99 Room Air Intake and Output 12/21/17 12/22/17 19:00 07:00 Intake Total 4.5 ml Output Total 1660 ml Balance -1655.5 ml IV Total 4.5 ml Output Urine Total 1660 ml # Voids 1 Laboratory Tests Test 12/21/17 22:10 12/21/17 23:10 12/22/17 04:00 12/22/17 07:00 Urine Opiates Screen Negative (NEGATIVE) Positive (NEGATIVE) H Urine Barbiturates Screen Negative (NEGATIVE) Negative (NEGATIVE) Phencyclidine (PCP) Screen Negative (NEGATIVE) Negative (NEGATIVE) Urine Amphetamines Screen Negative (NEGATIVE) Negative (NEGATIVE) Urine Benzodiazepines Screen Negative (NEGATIVE) Negative (NEGATIVE) Urine Cocaine Screen Negative (NEGATIVE) Negative (NEGATIVE) Urine Marijuana (THC) Screen Negative (NEGATIVE) Negative (NEGATIVE) Sodium Level 138 MMOL/L (136-145) Potassium Level 4.3 MMOL/L (3.5-5.1) Chloride Level 101 MMOL/L (98-107) Carbon Dioxide Level 31 MMOL/L (21-32) Anion Gap 6 mmol/L (5-15) Blood Urea Nitrogen 18 mg/dL (7-18) Creatinine 1.0 MG/DL (0.55-1.30) Estimat Glomerular Filtration Rate > 60 mL/min (>60) Glucose Level 176 MG/DL (74-106) H Lactic Acid Level 2.40 mmol/L (0.66-2.22) H 1.20 mmol/L (0.66-2.22) Calcium Level 10.6 MG/DL (8.5-10.1) H Total Bilirubin 0.6 MG/DL (0.2-1.0) Aspartate Amino Transf (AST/SGOT) 32 U/L (15-37) Alanine Aminotransferase (ALT/SGPT) 37 U/L (12-78) Alkaline Phosphatase 88 U/L (46-116) Total Creatine Kinase 74 U/L (26-308) Creatine Kinase MB 0.5 NG/ML (0.0-3.6) Creatine Kinase MB Relative Index 0.6 Troponin I 0.022 ng/mL (0.000-0.056) 0.017 ng/mL (0.000-0.056) Pro-B-Type Natriuretic Peptide 3252 pg/mL (0-125) H Total Protein 9.1 G/DL (6.4-8.2) H Albumin 3.8 G/DL (3.4-5.0) Globulin 5.3 g/dL Albumin/Globulin Ratio 0.7 (1.0-2.7) L Lipase 77 U/L (73-393) White Blood Count 5.6 K/UL (4.8-10.8) Red Blood Count 4.12 M/UL (4.20-5.40) L Hemoglobin 10.7 G/DL (12.0-16.0) L Hematocrit 35.5 % (37.0-47.0) L Mean Corpuscular Volume 86 FL (80-99) Mean Corpuscular Hemoglobin 25.9 PG (27.0-31.0) L Mean Corpuscular Hemoglobin Concent 30.1 G/DL (32.0-36.0) L Red Cell Distribution Width 14.6 % (11.6-14.8) Platelet Count 281 K/UL (150-450) Mean Platelet Volume 8.5 FL (6.5-10.1) Neutrophils (%) (Auto) 43.2 % (45.0-75.0) L Lymphocytes (%) (Auto) 46.1 % (20.0-45.0) H Monocytes (%) (Auto) 8.8 % (1.0-10.0) Eosinophils (%) (Auto) 0.9 % (0.0-3.0) Basophils (%) (Auto) 1.1 % (0.0-2.0) Prothrombin Time 10.5 SEC (9.30-11.50) Prothromb Time International Ratio 1.0 (0.9-1.1) Activated Partial Thromboplast Time 24 SEC (23-33) Arterial Blood pH 7.393 (7.350-7.450) Arterial Blood Partial Pressure CO2 50.5 mmHg (35.0-45.0) H Arterial Blood Partial Pressure O2 93.9 mmHg (75.0-100.0) Arterial Blood HCO3 30.1 mmol/L (22.0-26.0) H Arterial Blood Oxygen Saturation 96.9 % (92.0-98.0) Arterial Blood Base Excess 4.3 Earl Test Positive C-Reactive Protein, Quantitative < 0.4 mg/dL (0.00-0.90) Triglycerides Level 109 MG/DL (30-150) Cholesterol Level 201 MG/DL (< 200) H LDL Cholesterol 138 mg/dL (<100) H HDL Cholesterol 47 MG/DL (40-60) Cholesterol/HDL Ratio 4.3 (3.3-4.4) Thyroid Stimulating Hormone (TSH) 1.742 uiU/mL (0.358-3.740) Test 12/22/17 15:00 Troponin I 0.024 ng/mL (0.000-0.056) MAURISIO VILLAR Dec 22, 2017 20:12
[2017-12-22] MEDS ORDERED: Lisinopril 20mg tab ORAL SCH (21:00)
[2017-12-23] VITALS: BP 95/54
[2017-12-23 00:30] VITALS: BP 112/59
[2017-12-23] MEDS: Morphine Sulfate 2mg/ml Inj IVP PRN (00:38)
[2017-12-23 01:00] VITALS: BP 78/48
[2017-12-23 01:30] VITALS: BP 99/51
[2017-12-23 02:00] VITALS: BP 94/59
--- NOTE | 2017-12-23 03:46 | Consultation ---
DATE OF CONSULTATION: 12/22/2017 CARDIOLOGY CONSULTATION CONSULTING PHYSICIAN: Luciano Gardner M.D. REFERRING PHYSICIAN: Anam Fair M.D. REASON FOR REFERRAL: Chest pain. HISTORY OF PRESENT ILLNESS: This is a 62-year-old female with a history of hypertension, who has been compliant with the medication currently. The patient presented to the hospital because she has continued to have chest pains for approximately nine months or so, sharp sensation, left side of the breast, and they last approximately 30 minutes. No relieving or exacerbating factors are noted by the patient, although she is requiring morphine when she wakes up as she has pain. She states she is homeless. She did not take medications at home. She states she has shortness of breath with activity or with resting. She has been diagnosed with congestive heart failure. She spent some time at [facility] and was diagnosed with congestive heart failure at that time and was given diuretics and improved at the time of discharge. PAST MEDICAL HISTORY: Positive for high blood pressure. She states she has had a history of heart attack, but never had any treatment for it. No cancer. No stroke. No hepatitis or tuberculosis. No asthma, but she does have COPD. She states no ulcers. No kidney problems, liver problems, thyroid problems, anemia, or arthritis. No blood clots or HIV. ALLERGIES: None. SOCIAL HISTORY: She smokes. Does not drink alcoholic beverages. No drug use. REVIEW OF SYSTEMS: GASTROINTESTINAL: Negative. GENITOURINARY: Negative. PULMONARY: Occasional coughing. CONSTITUTIONAL: Negative. NEUROLOGICAL: Negative. PHYSICAL EXAMINATION: GENERAL: Shows to be a middle-aged female, in no respiratory distress. She is lying down relatively flat. NECK: Supple. No jugular venous distention. LUNGS: Decreased breath sounds noted. CARDIAC: Regular rate and rhythm. No heaves, thrills, gallops, or rubs are noted. ABDOMEN: Soft and nontender. Positive bowel sounds. Obese. EXTREMITIES: There is no edema. NEUROLOGICAL: She is awake, alert, and responsive. LABORATORY AND DIAGNOSTIC STUDIES: An echocardiogram was performed today shows ejection fraction of 35% to 40% global hypokinesis with moderate mitral regurgitation, moderate diastolic relaxation abnormality, and pulmonary artery systolic pressure of 42. Chest x-ray performed showed cardiomegaly and interstitial edema, and venous duplex study of the lower extremities shows no evidence of deep venous thrombosis. Her EKG shows normal sinus rhythm, nonspecific T-wave changes. No ST or T wave abnormalities of any significant degree. Laboratory values, troponins are negative on three separate occasions. Total cholesterol of 201, LDL of 138. TSH of 1.42. Lactic acid of 2.4 and subsequently 1.2. Coags, INR 1.0. Urine drug screen yesterday were negative and today was positive for opiates. A pH is 7.39, pCO2 of 50, pO2 of 93, and a bicarbonate of 30. White count 5.6, hemoglobin 10.7, and platelet count 281. ASSESSMENT AND PLAN: 1. Atypical left breast pain. 2. Global left ventricular hypokinesis. 3. Congestive heart failure. 4. Hypertension. 5. Poor medication compliance. The patient will be receiving some blood pressure medications and BETHANIE inhibitors as a primary treatment for her hypertension. controlled, however, no matter how many medications I prescribed. If the patient remains noncompliant, she will be at risk of developing congestive heart failure again. Importance of compliance was discussed with the patient. The patient will continue to get intravenous diuretics. Lisinopril will be increased to 20 mg twice daily and she will be continued with beta-blockers for the time being. If blood pressure is not controlled with the BETHANIE inhibitors, other medication will be added as needed. Luciano Gardner M.D. DR: Weston JOB#: [id number] CC:
--- NOTE | 2017-12-24 10:50 | Discharge Summary ---
Discharge Summary Hospital Course Date of Admission Dec 21, 2017 at 23:34 Date of Discharge Dec 23, 2017 at 03:50 Admitting Diagnosis ACS HPI Sandra Lang is a 62 year old female who was admitted on Dec 21, 2017 at 23 :34 for Acute Coronary Syndrome Hospital Course [id number] Discharge Discharge Disposition Patient left AMA Discharge Diagnoses: Marcela Dye NP Dec 24, 2017 10:50
--- NOTE | 2017-12-25 06:00 | Discharge Summary 2 SIG ---
DATE OF ADMISSION: 12/21/2017 DATE OF DISCHARGE: 12/23/2017 PRESSURE CONTROL SUPERVISOR: Luciano Gardner M.D. BRIEF HOSPITAL COURSE: The patient is a 62-year-old female with history of hypertension who has been noncompliant with medications, presented to the hospital for chest pain for approximately nine months or so. Chest pain was described to be sharp, located on the left side of the breast and lasts approximately 30 minutes. No relieving or exacerbating factors although she requires pain medication when she wakes up. She does not take any medications and has been diagnosed with congestive heart failure. She had been at [facility] and was given diuretics. On evaluation at ED, the patient became short of breath and had acutely decompensated. Central line was inserted to the right femoral area and was started on nitro drip, admitted to ICU. She had a chest x-ray done that showed cardiomegaly with pulmonary congestion, and EKG was in normal sinus rhythm. Echocardiogram done showed ejection fraction of 35% to 40% with global hypokinesis and moderate mitral regurgitation, moderate diastolic relaxation abnormality, and pulmonary artery systolic pressure of 42. Lactic acid was 2.4. Urine drug screen was negative. Nitro drip was discontinued. She was stressed the need for compliance with medication. She was given IV diuretics, and lisinopril was increased to b.i.d. However, full treatment was not carried out as the patient signed out against medical advice. FINAL DIAGNOSES: 1. Acute congestive heart failure. 2. Hypertensive emergency. 3. Diabetes mellitus. 4. Atypical left breast pain. 5. Global left ventricular hypokinesis. 6. Hypertension. 7. Poor medication compliance. DISPOSITION: The patient left AMA. Anam Fair M.D. I have been assigned to dictate discharge summary on this account and I was not involved in the patient's management. Marcela Dye N.P. DR: Sidney JOB#: [id number] CC: GREG
[2017-12-28] MEDS ORDERED: LISINOPRIL5 MG ORAL (00:28)
[2017-12-28] MEDS ORDERED: CATAPRES0.3 MG ORAL (00:28)
[2017-12-28] MEDS ORDERED: GLUCOPHAGE500 MG ORAL (00:28)
[2017-12-28] MEDS ORDERED: ASPIR 8181 MG ORAL (00:28)
[2017-12-28] MEDS ORDERED: METOPROLOL SUCC25 MG ORAL (00:28)
[2017-12-28] MEDS ORDERED: KLONOPIN0.5 MG ORAL (00:28)
[2017-12-28] MEDS ORDERED: CALCIUM500 M3 PO (00:28)
--- NOTE | 2017-12-28 13:16 | Diagnostic Imaging Report ---
APPROVED REPORT CPT Code: 63487 Present Symptoms Comments: R/O DVT BILATERAL: Imaging reveals a patent deep venous system bilaterally. There is no evidence of thrombus within the femoral, popliteal or tibial segments. The greater saphenous veins are also within normal limits. Doppler indicates normal spontaneous flow within these segments.
--- NOTE | 2017-12-29 03:38 | Physician Query ---
--------- THIS DOCUMENT IS A PERMANENT PART OF THE MEDICAL RECORD --------- PLEASE COMPLETE THE DOCUMENT BEFORE SIGNING Dear Dr. FAIR Date: 12/29/17 Senior Commissions Analyst/CDS Name: CASSIUS GIRON, AKANKSHA Exercise your independent professional judgment when responding to query. Question asked do not imply a particular answer is desired/expected Clinical Documentation States: DISCHARGE SUMMARY FINAL DIAGNOSES: 1. Acute congestive heart failure. She had a chest x-ray done that showed cardiomegaly with pulmonary congestion, and EKG was in normal sinus rhythm. Echocardiogram done showed ejection fraction of 35 % to 40% with global hypokinesis and moderate mitral regurgitation, moderate diastolic relaxation abnormality, and pulmonary artery systolic pressure of 42. She was given IV diuretics, and lisinopril was increased to b.i.d. Clinical Findings Show: 12/21/17 -BNP 3252 Diuretic IV Echocardiogram EF 35- 40% Please Clarify the Congestive Heart Failure: Acuity [] Acute [] Chronic [] Acute on Chronic Type [] Systolic [] Diastolic [] Systolic & Diastolic (Combined) [] Left Heart failure [] Other: Etiology [] CHF due to Hypertension [] Cardiomyopathy [] Valvular Heart Disease [] Coronary Artery Disease [] Unable to determine [] Other: Condition Present on Admission: [] Yes [] No []Clinically Undeterminable Please also document in your Progress Notes and/or Discharge Summary and indicate if the condition was present on admission. Anam Fair M.D. Date & Time [facility]
== END 2017-12-23 03:50 | disposition left against medical advice (07) | DRG 199 ==
LOC: EDBD 20:06 → EMR 22:33 → EDBEDREQ 23:06 → ICU 23:34 → EDBEDREQ 23:38 → EDBEDREQTM 23:38 → EDBEDREQSVC 23:38 → EDBEDREQ 23:53 → ICU 12-22 01:26
PROC: 06HM33Z Insertion of Infusion Device into Right Femoral Vein, Percutaneous Approach (ICD-10-PCS; principal; 2017-12-21)
DX: I16.1 Hypertensive emergency (principal); I50.23 Acute on chronic systolic (congestive) heart failure; I11.0 Hypertensive heart disease with heart failure; J44.9 Chronic obstructive pulmonary disease, unspecified; N64.4 Mastodynia; Z91.14 Patient's other noncompliance with medication regimen; I34.0 Nonrheumatic mitral (valve) insufficiency; E11.9 Type 2 diabetes mellitus without complications; Z59.0 Homelessness; F17.200 Nicotine dependence, unspecified, uncomplicated; I25.10 Atherosclerotic heart disease of native coronary artery without angina pectoris; I42.9 Cardiomyopathy, unspecified
CPT/HCPCS: 36415; 36600; 71045; 80053; 80061; 80307; 82550; 82553; 82803; 82962; 83605; 83690; 83880; 84443; 84484; 85025; 85610; 85730; 86140; 87040; 87081; 87181; 93005; 93306; 93970; 94664; J1815

== ENCOUNTER 2017-12-23 07:00 | Emergency (ER) | payer MEDICAID ==
[~2017-12-23] VITALS: Ht 170.2 cm; Wt 126.1 kg
[2017-12-23 07:25] VITALS: BP 149/86
[2017-12-23 08:28] VITALS: BP 130/80
--- NOTE | 2017-12-23 08:39 | Emergency Room Report ---
History of Present Illness General Chief Complaint: Pain Source: Patient Present Illness HPI Patient had been noted recently to the hospital with CHF I had seen the patient and was the admitting physician In the morning prior to the patient checking into the emergency room today patient was seen at the security office Patient saw me and stated that she had left the hospital and wants to come back in Further discussion reveals that the patient had become extremely agitated and combative on the floor And patient had signed out AGAINST MEDICAL ADVICE This morning patient denies any chest pain or shortness of breath She reports that they have found a lump in her left breast Allergies: Coded Allergies: No Known Allergies (Unverified , 08/19/12) Patient History Past Medical History: see triage record Pertinent Family History: none Last Menstrual Period: na Reviewed Nursing Documentation: PMH: Agreed, PSxH: Agreed Nursing Documentation-PMH Past Medical History: No History, Except For Hx Cardiac Problems: Yes Hx Hypertension: Yes Hx COPD: Yes Hx Diabetes: Yes Hx Cancer: Yes - left breast Hx Gastrointestinal Problems: No Hx Neurological Problems: Yes Hx Seizures: Yes Review of Systems All Other Systems: negative except mentioned in HPI Physical Exam Vital Signs Date Time Temp Pulse Resp B/P (MAP) Pulse Ox O2 Delivery O2 Flow Rate FiO2 12/23/17 07:15 98.1 88 20 149/86 95 Room Air Sp02 EP Interpretation: reviewed, normal General Appearance: well appearing, no apparent distress Head: normocephalic, atraumatic Eyes: bilateral eye PERRL, bilateral eye EOMI ENT: normal pharynx Neck: supple Respiratory: lungs clear Cardiovascular #1: regular rate, rhythm, no edema Gastrointestinal: soft Musculoskeletal: normal inspection Neurologic: alert, oriented x3, responsive Skin: no rash Lymphatic: normal inspection Medical Decision Making Diagnostic Impression: Primary Impression: Breast mass in female ER Course At this time patient is hemodynamically stable Lungs sounds cardiac eval are normal Patient appears to have just left the hospital AGAINST MEDICAL ADVICE I did ask her if she had any family to contact patient states no and reports that she is homeless Therefore social work was contacted Patient's breast evaluation is deferred and is something that will require further outpatient evaluation No further emergency room intervention was required Last Vital Signs Date Time Temp Pulse Resp B/P (MAP) Pulse Ox O2 Delivery O2 Flow Rate FiO2 12/23/17 08:28 66 16 130/80 98 Room Air 12/23/17 07:25 98.1 Status: unchanged Disposition: HOME, SELF-CARE Condition: Stable Referrals: [facility],REFERRING (PCP) Additional Instructions: Patient is provided with the discharge instructions notified to follow up with primary doctor in the next 2-3 days otherwise return to the er with any worsening symptoms. Please note that this report is being documented using DRAGON technology. This can lead to erroneous entry secondary to incorrect interpretation by the dictating instrument. HOMERO SAUNDERS D.O. Dec 23, 2017 08:39
[2017-12-28] MEDS ORDERED: KLONOPIN0.5 MG ORAL (00:28)
[2017-12-28] MEDS ORDERED: METOPROLOL SUCC25 MG ORAL (00:28)
[2017-12-28] MEDS ORDERED: LISINOPRIL5 MG ORAL (00:28)
[2017-12-28] MEDS ORDERED: CALCIUM500 M3 PO (00:28)
[2017-12-28] MEDS ORDERED: CATAPRES0.3 MG ORAL (00:28)
[2017-12-28] MEDS ORDERED: ASPIR 8181 MG ORAL (00:28)
[2017-12-28] MEDS ORDERED: GLUCOPHAGE500 MG ORAL (00:28)
== END 2017-12-23 08:34 | disposition home or self-care (01) ==
LOC: EMR 08:01
DX: N63.0 Unspecified lump in unspecified breast (principal); I10 Essential (primary) hypertension; J44.9 Chronic obstructive pulmonary disease, unspecified; E11.9 Type 2 diabetes mellitus without complications; Z86.69 Personal history of other diseases of the nervous system and sense organs
CPT/HCPCS: 99282

== ENCOUNTER 2017-12-28 00:29 | Emergency (ER) | payer MEDICAID ==
[~2017-12-28] VITALS: Ht 170.2 cm; Wt 122.5 kg
[2017-12-28 00:29] VITALS: BP 179/119
[~2017-12-28 00:29] MED LIST changes: +ASPIR 8181 MG ORAL; +CALCIUM500 M3 PO; +GLUCOPHAGE500 MG ORAL; +KLONOPIN0.5 MG ORAL; +METOPROLOL SUCC25 MG ORAL
[2017-12-28] MEDS ORDERED: Furosemide 40mg tab ORAL ONE (01:00)
[2017-12-28 02:29] VITALS: BP 168/80
[2017-12-28 04:29] VITALS: BP 162/75
[2017-12-28 05:20] VITALS: BP 168/70
--- NOTE | 2017-12-28 05:24 | Emergency Room Report ---
History of Present Illness General Chief Complaint: Dyspnea/Respdistress Source: Patient Present Illness HPI Patient presents initially with complaints of headache However complains mainly of feeling short of breath as well Denies any chest pain She reports that she thinks she might have fluid in her lungs denies any vomiting or diarrhea denies any back or flank pain Patient reports that she was anxious because she was not given a refill of her anxiety medication Denies any recent fever patient has had a mild cough Allergies: Coded Allergies: No Known Allergies (Unverified , 08/19/12) Patient History Past Medical History: see triage record Pertinent Family History: none Reviewed Nursing Documentation: PMH: Agreed, PSxH: Agreed Nursing Documentation-PMH Past Medical History: No History, Except For Hx Cardiac Problems: Yes - CHF Hx Hypertension: Yes Hx COPD: Yes Hx Diabetes: Yes Hx Cancer: Yes - left breast Hx Gastrointestinal Problems: No Hx Neurological Problems: Yes Hx Seizures: Yes Review of Systems All Other Systems: negative except mentioned in HPI Physical Exam Vital Signs Date Time Temp Pulse Resp B/P (MAP) Pulse Ox O2 Delivery O2 Flow Rate FiO2 12/28/17 00:20 98.8 114 24 179/119 93 Room Air 98.8 12/28/17 01:26 35 Sp02 EP Interpretation: reviewed, normal General Appearance: no apparent distress Head: normocephalic, atraumatic Eyes: bilateral eye PERRL, bilateral eye EOMI ENT: hearing grossly normal, normal pharynx, TMs + canals normal, uvula midline , other - Poor dentition Neck: full range of motion, supple, no meningismus, no bony tend Respiratory: no rhonchi, no respiratory distress, no retraction, no accessory muscle use, crackles - Both lower lobes Cardiovascular #1: normal peripheral pulses, regular rate, rhythm, no edema, no gallop, no JVD, no murmur Gastrointestinal: normal bowel sounds, non tender, soft, no mass, no organomegaly, non-distended, no guarding, no hernia, no pulsatile mass, no rebound Genitourinary: no CVA tenderness Musculoskeletal: normal inspection Neurologic: oriented x3, responsive, cath lab III-XII nml as tested, motor strength/ tone normal, sensory intact Psychiatric: mood/affect normal Skin: normal color, no rash, warm/dry, palpation normal Lymphatic: normal inspection, no adenopathy Medical Decision Making Diagnostic Impression: Primary Impression: chf ER Course Multiple differentials are considered Including but not limited to cardiac, cardiopulmonary, vascular pathology Patient has had recent hospitalization She also showed signs of sleep apnea with heavy snoring while sleeping Patient was placed on Cpap for symptomatically then provided with Lasix X-ray continues to show pulmonary congestion questionably mildly worsened since previous Patient also reports that her breathing became worse after smoking This is similar to what has happened to her several times in the past For further observation and oxygenation patient has done better Continues to saturate at 93-94% on room air Patient's EF is low she has multiple comorbidities And is fairly noncompliant At this time however given the repeat evaluation after Cpap and Lasix patient continues to saturate well In no acute distress stable for close outpatient followup EKG Diagnostic Results Rate: tachycardiac Rhythm: other ST Segments: no acute changes Rhythm Strip Diag. Results EP Interpretation: yes Rate: 85 Rhythm: NSR, no PVC's, no ectopy Chest X-Ray Diagnostic Results Chest X-Ray Diagnostic Results : Chest X-Ray Ordered: Yes # of Views/Limited/Complete: 1 View Indication: Shortness of Breath EP Interpretation: Yes Interpretation: no pneumothorax, other - Borderline cardiomegaly, pulmonary congestion, no acute bony abnormalities Impression: Other - Pulmonary congestion Electronically Signed by: Devante Saunders, Last Vital Signs Date Time Temp Pulse Resp B/P (MAP) Pulse Ox O2 Delivery O2 Flow Rate FiO2 12/28/17 04:12 35 12/28/17 02:29 98.8 95 18 168/80 100 Bi-pap 98.8 Status: improved Disposition: HOME, SELF-CARE Condition: Improved Referrals: NON PHYSICIAN (PCP) Patient Instructions: Heart Failure, [id number] Additional Instructions: you have signs of sleep apnea as well. CPap machine would be beneficial for CHF along with sleep apnea. He can also increase your Lasix for the next several days until followup with primary physician DEVANTE SAUNDERS D.O. Dec 28, 2017 05:24
--- NOTE | 2017-12-28 10:42 | Diagnostic Imaging Report ---
Indication: Dyspnea Comparison: 12/21/2017 A single view chest radiograph was obtained. Findings: Moderate vascular congestion and interstitial edema demonstrated with cardiomegaly. Findings are unchanged IMPRESSION: CHF
--- NOTE | 2017-12-28 16:57 | Cardiology Report ---
APPROVED REPORT EKG Measurement Heart [id number] ID [id number] Sinus tachycardia Voltage criteria for left ventricular hypertrophy Nonspecific T wave abnormality Abnormal ECG
== END 2017-12-28 05:20 | disposition home or self-care (01) ==
LOC: EDBD 00:29 → EMR 01:15
DX: I11.0 Hypertensive heart disease with heart failure (principal); I50.9 Heart failure, unspecified; J44.9 Chronic obstructive pulmonary disease, unspecified; Z85.3 Personal history of malignant neoplasm of breast; E11.9 Type 2 diabetes mellitus without complications
CPT/HCPCS: 71045; 93005; 99284

== ENCOUNTER 2018-05-06 17:49 | Emergency (ER) | payer MEDICAID ==
[~2018-05-06] VITALS: Ht 170.2 cm; Wt 122.5 kg
[2018-05-06 18:25] VITALS: BP 186/91
[2018-05-06 18:54] LABS: BASOPHILS % (AUTO) 3.1 % (0.0-2.0); HEMOGLOBIN 11.4 G/DL (12.0-16.0); LYMPHOCYTES % (AUTO) 46.3 % (20.0-45.0); MEAN CORPUSCULAR VOLUME 85 FL (80-99); MONOCYTES % (AUTO) 7.2 % (1.0-10.0); NEUTROPHILS % (AUTO) 41.4 % (45.0-75.0); PLATELET COUNT 264 K/UL (150-450); RED BLOOD COUNT 4.48 M/UL (4.20-5.40); RED CELL DISTRIBUTION WIDTH 13.9 % (11.6-14.8); WHITE BLOOD COUNT 5.4 K/UL (4.8-10.8)
[2018-05-06] MEDS ORDERED: Albuterol ud Inhalation HHN ONE (19:00)
[2018-05-06 19:09] LABS: ANION GAP 8 mmol/L (5-15); BLOOD UREA NITROGEN 15 mg/dL (7-18); CALCIUM 10.2 MG/DL (8.5-10.1); CARBON DIOXIDE 28 MMOL/L (21-32); CHLORIDE 105 MMOL/L (98-107); CREATININE 1.1 MG/DL (0.55-1.30); POTASSIUM 4.1 MMOL/L (3.5-5.1); SODIUM 140 MMOL/L (136-145)
[2018-05-06 19:23] LABS: ALANINE AMINOTRANSFERASE 30 U/L (12-78); ALBUMIN 3.5 G/DL (3.4-5.0); ALBUMIN/GLOBULIN RATIO 0.7 (1.0-2.7); ALKALINE PHOSPHATASE 85 U/L (46-116); ASPARTATE AMINO TRANSFERASE 27 U/L (15-37); BILIRUBIN,TOTAL 0.6 MG/DL (0.2-1.0); CKMB < 0.5 NG/ML (0.0-3.6); CREATINE KINASE 68 U/L (26-308)
[2018-05-06] MEDS ORDERED: VITAMIN D1000 UNI1 ORAL (19:26)
[2018-05-06] MEDS ORDERED: SEROQUEL200 MG ORAL (19:26)
[2018-05-06 20:25] VITALS: BP 108/82
--- NOTE | 2018-05-06 20:45 | Diagnostic Imaging Report ---
EXAM: XR Chest, 1 View CLINICAL HISTORY: CP TECHNIQUE: Frontal view of the chest. COMPARISON: No relevant prior studies available. FINDINGS: Lungs: Diffuse airspace opacities which may represent pulmonary vascular congestion versus an infectious process. Pleural space: Unremarkable. No pneumothorax. Heart: Mild enlargement of heart. Mediastinum: Unremarkable. Bones/joints: Unremarkable osseous structures. IMPRESSION: Diffuse airspace opacities which may represent pulmonary vascular congestion versus an infectious process.
--- NOTE | 2018-05-06 21:09 | Emergency Room Report ---
History of Present Illness General Chief Complaint: Dyspnea/Respdistress Source: Patient, EMS Present Illness HPI Patient presents with complaints of shortness of breath She reports that she has a history of COPD She did smoke earlier today Patient also reports that she was kicked out of her boarding care facility Denies any vomiting denies any fevers Denies any back or flank pain Denies any pleurisy Denies any chest pain Allergies: Coded Allergies: No Known Allergies (Unverified , 08/19/12) Patient History Past Medical History: see triage record Reviewed Nursing Documentation: PMH: Agreed; PSxH: Agreed Nursing Documentation-PMH Hx Cardiac Problems: Yes - subs abuse Hx Hypertension: Yes Hx Asthma: Yes Hx COPD: Yes Hx Diabetes: Yes Hx Cancer: Yes - left breast Hx Gastrointestinal Problems: No Hx Neurological Problems: Yes Hx Seizures: Yes Review of Systems All Other Systems: negative except mentioned in HPI Physical Exam Vital Signs Date Time Temp Pulse Resp B/P (MAP) Pulse Ox O2 Delivery O2 Flow Rate FiO2 05/06/18 17:42 98.5 97 20 163/121 97 Room Air 98.4 05/06/18 19:11 21 Sp02 EP Interpretation: reviewed, normal General Appearance: no apparent distress Head: normocephalic, atraumatic Eyes: bilateral eye PERRL, bilateral eye EOMI ENT: hearing grossly normal, normal pharynx, TMs + canals normal, uvula midline Neck: full range of motion, supple, no meningismus, no bony tend Respiratory: no respiratory distress, no retraction, no accessory muscle use, crackles - Bilateral lower lobes Cardiovascular #1: normal peripheral pulses, regular rate, rhythm, no edema, no gallop, no JVD, no murmur Gastrointestinal: normal bowel sounds, non tender, soft, no mass, no organomegaly, non-distended, no guarding, no hernia, no pulsatile mass, no rebound Genitourinary: no CVA tenderness Musculoskeletal: normal inspection Neurologic: oriented x3, responsive, claim review medical director III-XII nml as tested, motor strength/ tone normal, sensory intact Psychiatric: mood/affect normal Skin: normal color, no rash, warm/dry, palpation normal Lymphatic: normal inspection, no adenopathy Medical Decision Making Diagnostic Impression: Primary Impression: COPD (chronic obstructive pulmonary disease) ER Course Patient is a fairly complex patient with multiple differential to consideration including but not limited to cardiac cardiopulmonary and vascular emergencies Patient provided with breathing treatment has done significantly better Patient receiving further oxygenation And requires inpatient care Labs Test 05/06/18 18:35 White Blood Count 5.4 K/UL (4.8-10.8) Red Blood Count 4.48 M/UL (4.20-5.40) Hemoglobin 11.4 G/DL (12.0-16.0) Hematocrit 38.0 % (37.0-47.0) Mean Corpuscular Volume 85 FL (80-99) Mean Corpuscular Hemoglobin 25.6 PG (27.0-31.0) Mean Corpuscular Hemoglobin Concent 30.1 G/DL (32.0-36.0) Red Cell Distribution Width 13.9 % (11.6-14.8) Platelet Count 264 K/UL (150-450) Mean Platelet Volume 7.5 FL (6.5-10.1) Neutrophils (%) (Auto) 41.4 % (45.0-75.0) Lymphocytes (%) (Auto) 46.3 % (20.0-45.0) Monocytes (%) (Auto) 7.2 % (1.0-10.0) Eosinophils (%) (Auto) 2.0 % (0.0-3.0) Basophils (%) (Auto) 3.1 % (0.0-2.0) Sodium Level 140 MMOL/L (136-145) Potassium Level 4.1 MMOL/L (3.5-5.1) Chloride Level 105 MMOL/L (98-107) Carbon Dioxide Level 28 MMOL/L (21-32) Anion Gap 8 mmol/L (5-15) Blood Urea Nitrogen 15 mg/dL (7-18) Creatinine 1.1 MG/DL (0.55-1.30) Estimat Glomerular Filtration Rate > 60 mL/min (>60) Glucose Level 95 MG/DL (74-106) Calcium Level 10.2 MG/DL (8.5-10.1) Total Bilirubin 0.6 MG/DL (0.2-1.0) Aspartate Amino Transf (AST/SGOT) 27 U/L (15-37) Alanine Aminotransferase (ALT/SGPT) 30 U/L (12-78) Alkaline Phosphatase 85 U/L (46-116) Total Creatine Kinase 68 U/L (26-308) Creatine Kinase MB < 0.5 NG/ML (0.0-3.6) Creatine Kinase MB Relative Index 0.7 Troponin I 0.000 ng/mL (0.000-0.056) Pro-B-Type Natriuretic Peptide 4254 pg/mL (0-125) Total Protein 8.5 G/DL (6.4-8.2) Albumin 3.5 G/DL (3.4-5.0) Globulin 5.0 g/dL Albumin/Globulin Ratio 0.7 (1.0-2.7) Lipase 103 U/L (73-393) Rhythm Strip Diag. Results EP Interpretation: yes Rate: 67 Rhythm: NSR, no PVC's, no ectopy Chest X-Ray Diagnostic Results Chest X-Ray Diagnostic Results : Chest X-Ray Ordered: Yes # of Views/Limited/Complete: 1 View Indication: Shortness of Breath EP Interpretation: Yes Interpretation: no consolidation, no effusion, no pneumothorax, other - Questionable interstitial disease versus, mild congestion no obvious focal infiltrate Impression: Other - Interstitial disease versus, versus infiltrate Electronically Signed by: Devante Martinez DO Last Vital Signs Date Time Temp Pulse Resp B/P (MAP) Pulse Ox O2 Delivery O2 Flow Rate FiO2 05/06/18 19:12 84 18 100 Room Air 21 05/06/18 19:01 185/107 05/06/18 18:25 98.4 98.4 Status: improved Disposition: XFER SHT-TRM HOSP Condition: Improved Referrals: [facility],REFERRING (PCP) Devante Martinez DO May 06, 2018 21:08
[2018-05-06 22:25] VITALS: BP 171/81
[2018-05-06] MEDS ORDERED: LORazepam Inj 2mg/ml 1ml ONE (22:51)
[2018-05-06] MEDS ORDERED: LORazepam 1mg tab ORAL ONE (23:15)
[2018-05-07 00:19] VITALS: BP 153/87
[2018-05-07 00:34] VITALS: BP 153/87
--- NOTE | 2018-05-11 15:32 | Cardiology Report ---
APPROVED REPORT EKG Measurement Heart [id number] PA [id number] Normal sinus rhythm Voltage criteria for left ventricular hypertrophy Nonspecific T wave abnormality Prolonged QT Abnormal ECG
== END 2018-05-07 00:30 | disposition left against medical advice (07) ==
LOC: EDBD 17:49 → EMR 18:30
DX: J44.9 Chronic obstructive pulmonary disease, unspecified (principal); I10 Essential (primary) hypertension; E11.9 Type 2 diabetes mellitus without complications; Z85.3 Personal history of malignant neoplasm of breast
CPT/HCPCS: 36415; 71045; 80053; 82550; 82553; 83690; 83880; 84484; 85025; 87040; 87181; 93005; 94640; 96365; 96374; 99284; J0360; J1940

== ENCOUNTER 2018-06-07 17:21 | Emergency (ER) | payer MEDICAID ==
[~2018-06-07] VITALS: Ht 170.2 cm; Wt 122.5 kg
[~2018-06-07 17:21] MED LIST changes: +SEROQUEL200 MG ORAL; +VITAMIN D1000 UNI1 ORAL
[2018-06-07] MEDS ORDERED: DiphenhydrAMINE 50mg/ml Inj IM ONE (18:15)
[2018-06-07 18:43] VITALS: BP 132/85
--- NOTE | 2018-06-07 18:59 | Emergency Room Report ---
History of Present Illness General Chief Complaint: Behavioral Complaint Source: Patient, Medical Record (Kevin Smith) Present Illness HPI 62-year-old female patient presents ER brought in by ambulance complaining of hearing voices. Patient reports history of schizophrenia and bipolar disorder. Patient states that she is currently being treated for bipolar disorder with Seroquel and Depakote. Patient reports that she is not currently being treated for hearing voices or schizophrenia. States that she normally receives Haldol and Benadryl for relief of symptoms. Denies fever, chest pain, shortness breath , abdominal pain. Denies other acute symptoms at this time. Denies suicidal or homicidal ideation. Reports hx of COPD, states uses asthma inhaler, reports ran out of medication. (Kevin Smith) Allergies: Coded Allergies: No Known Allergies (Unverified , 08/19/12) Patient History Past Medical History: see triage record Reviewed Nursing Documentation: PMH: Agreed; PSxH: Agreed (Kevin Smith) Nursing Documentation-PMH Past Medical History: No History, Except For Hx Cardiac Problems: Yes - subs abuse Hx Hypertension: Yes Hx Asthma: Yes Hx COPD: Yes Hx Diabetes: Yes Hx Cancer: Yes - left breast Hx Gastrointestinal Problems: No Hx Neurological Problems: Yes Hx Seizures: Yes (Kevin Smith) Review of Systems All Other Systems: negative except mentioned in HPI (Kevin Smith) Physical Exam Vital Signs Date Time Temp Pulse Resp B/P (MAP) Pulse Ox O2 Delivery O2 Flow Rate FiO2 06/07/18 17:18 98.7 80 19 176/96 98 Room Air 98.8 Sp02 EP Interpretation: reviewed, normal General Appearance: well appearing, no apparent distress, alert, GCS 15, non- toxic Head: normocephalic, atraumatic Eyes: bilateral eye normal inspection, bilateral eye PERRL ENT: hearing grossly normal, normal pharynx, no angioedema, normal voice, uvula midline, moist mucus membranes Neck: full range of motion Respiratory: lungs clear, normal breath sounds, no rhonchi, no respiratory distress, no accessory muscle use, no wheezing, speaking full sentences Cardiovascular #1: regular rate, rhythm, no edema Musculoskeletal: back normal, digits/nails normal, gait/station normal, normal range of motion, non-tender Neurologic: alert, oriented x3, responsive, motor strength/tone normal, sensory intact, cerebellar normal, normal gait, speech normal Psychiatric: mood/affect normal Skin: no rash (Kevin Smith) Medical Decision Making PA Attestation Dr. Simeon is my supervising Physician whom patient management has been discussed with. (Kevin Smith) Diagnostic Impression: Primary Impression: Behavioral disorder Additional Impression: COPD (chronic obstructive pulmonary disease) Qualified Codes: J42 - Unspecified chronic bronchitis ER Course Pt. presents to the ED c/o hearing voices. Ddx considered but are not limited to anxiety, depression, drug use, alcohol use , behavioral disorder, schizophrenia, malingering. Vital signs: are WNL, pt. is afebrile Ordered labs, urine drug screen, serum alcohol. ER COURSE: Provided patient with Haldol and Benadryl. Patient resting comfortably distress. following administration of Haldol and Benadryl, patient resting comfortably in no acute distress on repeat examination. Reviewed patient nursing report, contrary to nursing report patient does not state any suicidal or homicidal ideation at this time. patient is not currently on a hold and was put on a hold by the paramedics who brought her to ER. Physical exam benign, lungs clear to auscultation, no abdominal tenderness to palpation, no focal neuro deficits. Patient does not require imaging at this time. Patient states his presentation. CBC and CMP unremarkable, no elevation WBCs or LFTs. UA does not show any nitrites, patient asymptomatic, low suspicion for UTI, does not require antibiotic treatment at this time. Urine drug screen negative, no elevation in acetaminophen or salicylate levels. serum alcohol unremarkable. Valproic acid levels mildly decreased to 46. Will order Depakote for patient. Informed by nurse patient states they are having difficulty breathing. follow- up with patient, patient states she has a history of asthma and has not used her inhaler because she ran of the medication, lungs clear to auscultation however due to patient's complaints of breathing difficulty Will provide breathing treatment. Following breathing treatment patient states breathing better. Patient is resting comfortably in bed in no acute distress. Nontoxic appearing. Discussed with the patient attempting to transfer her to psychiatric facility on voluntary hold. Patient states that she is open to a voluntary admission to psychiatric facility. Patient is medically cleared. Resting comfortably, no acute distress, not agitated. Instructed patient to follow-up with primary care provider for further treatment and evaluation, follow-up with mental health professional for further treatment and assessment. Patient care transferred to Dr. Landeros. - Please note that this Emergency Department Report was dictated using [employer] bridge inspector technology software, occasionally this can lead to erroneous entry secondary to interpretation by the dictation equipment. Labs Test 06/07/18 19:05 White Blood Count 6.2 K/UL (4.8-10.8) Red Blood Count 4.25 M/UL (4.20-5.40) Hemoglobin 10.9 G/DL (12.0-16.0) Hematocrit 35.5 % (37.0-47.0) Mean Corpuscular Volume 84 FL (80-99) Mean Corpuscular Hemoglobin 25.5 PG (27.0-31.0) Mean Corpuscular Hemoglobin Concent 30.5 G/DL (32.0-36.0) Red Cell Distribution Width 13.4 % (11.6-14.8) Platelet Count 209 K/UL (150-450) Mean Platelet Volume 7.5 FL (6.5-10.1) Neutrophils (%) (Auto) 42.2 % (45.0-75.0) Lymphocytes (%) (Auto) 50.3 % (20.0-45.0) Monocytes (%) (Auto) 4.5 % (1.0-10.0) Eosinophils (%) (Auto) 1.6 % (0.0-3.0) Basophils (%) (Auto) 1.5 % (0.0-2.0) Urine Color Yellow Urine Appearance Clear Urine pH 6 (4.5-8.0) Urine Specific [place] 1.020 (1.005-1.035) Urine Protein 2+ (NEGATIVE) Urine Glucose (UA) Negative (NEGATIVE) Urine Ketones 1+ (NEGATIVE) Urine Occult Blood Negative (NEGATIVE) Urine Nitrite Negative (NEGATIVE) Urine Bilirubin 1+ (NEGATIVE) Urine Ictotest Negative Urine Urobilinogen 8 MG/DL (0.0-1.0) Urine Leukocyte Esterase 3+ (NEGATIVE) Urine RBC 0-2 /HPF (0 - 2) Urine WBC 5-10 /HPF (0 - 2) Urine Squamous Epithelial Cells Few /LPF (NONE/OCC) Urine Bacteria Few /HPF (NONE) Sodium Level 145 MMOL/L (136-145) Potassium Level 4.3 MMOL/L (3.5-5.1) Chloride Level 107 MMOL/L (98-107) Carbon Dioxide Level 30 MMOL/L (21-32) Anion Gap 8 mmol/L (5-15) Blood Urea Nitrogen 16 mg/dL (7-18) Creatinine 0.8 MG/DL (0.55-1.30) Estimat Glomerular Filtration Rate > 60 mL/min (>60) Glucose Level 100 MG/DL (74-106) Calcium Level 10.3 MG/DL (8.5-10.1) Total Bilirubin 0.6 MG/DL (0.2-1.0) Aspartate Amino Transf (AST/SGOT) 18 U/L (15-37) Alanine Aminotransferase (ALT/SGPT) 23 U/L (12-78) Alkaline Phosphatase 93 U/L (46-116) Total Protein 8.5 G/DL (6.4-8.2) Albumin 3.7 G/DL (3.4-5.0) Globulin 4.8 g/dL Albumin/Globulin Ratio 0.8 (1.0-2.7) Salicylates Level 2.6 ug/mL (2.8-20) Urine Opiates Screen Negative (NEGATIVE) Acetaminophen Level < 2 MCG/ML (10-30) Urine Barbiturates Screen Negative (NEGATIVE) Valproic Acid (Depakene) Level 46 MCG/ML (50-100) Phencyclidine (PCP) Screen Negative (NEGATIVE) Urine Amphetamines Screen Negative (NEGATIVE) Urine Benzodiazepines Screen Negative (NEGATIVE) Urine Cocaine Screen Negative (NEGATIVE) Urine Marijuana (THC) Screen Negative (NEGATIVE) Serum Alcohol < 3 mg/dL (Kevin Smith P.A.) ER Course Hospital Course 62-year-old female with hearing voices Clinical course Patient initially seen and evaluated by JOÃO Smith; please his note for full history and physical Labs-electrolytes normal, aspirin/Tylenol levels normal, EtOH level normal, U. tox negative, depakote level slightly subtherpaeutic Patient had been given Haldol, Ativan initially. Nursing concern for potential SI however patient never endorse SI or HI to provider. Autumn repleted. On reassessment patient states she feels much better. Is asking to be discharged. Denies any SI or HI at this time. Patient is not on a 5150 hold. States that she needs refills of her seroquel and Depakote. Patient also noting productive cough with yellowish sputum. History of COPD. We will prescribe antibiotics i. I feel this is a highly complex case requiring extensive working including EKG/Rhythm strip, Xray/CT/US, Blood/urine lab work, repeat exams while in ED, and administration of strong opiates/narcotics for pain control, admission to hospital or close patient follow up. Diagnosis - behavioral disorder. COPD Stable and discharged with Rx seroquel, depakote, amoxicillin, albuterol, prednisone. Followup with PMD/psychiatrist. Return to ED if symptoms recur or worsen Labs Test 06/07/18 19:05 White Blood Count 6.2 K/UL (4.8-10.8) Red Blood Count 4.25 M/UL (4.20-5.40) Hemoglobin 10.9 G/DL (12.0-16.0) Hematocrit 35.5 % (37.0-47.0) Mean Corpuscular Volume 84 FL (80-99) Mean Corpuscular Hemoglobin 25.5 PG (27.0-31.0) Mean Corpuscular Hemoglobin Concent 30.5 G/DL (32.0-36.0) Red Cell Distribution Width 13.4 % (11.6-14.8) Platelet Count 209 K/UL (150-450) Mean Platelet Volume 7.5 FL (6.5-10.1) Neutrophils (%) (Auto) 42.2 % (45.0-75.0) Lymphocytes (%) (Auto) 50.3 % (20.0-45.0) Monocytes (%) (Auto) 4.5 % (1.0-10.0) Eosinophils (%) (Auto) 1.6 % (0.0-3.0) Basophils (%) (Auto) 1.5 % (0.0-2.0) Urine Color Yellow Urine Appearance Clear Urine pH 6 (4.5-8.0) Urine Specific [place] 1.020 (1.005-1.035) Urine Protein 2+ (NEGATIVE) Urine Glucose (UA) Negative (NEGATIVE) Urine Ketones 1+ (NEGATIVE) Urine Occult Blood Negative (NEGATIVE) Urine Nitrite Negative (NEGATIVE) Urine Bilirubin 1+ (NEGATIVE) Urine Ictotest Negative Urine Urobilinogen 8 MG/DL (0.0-1.0) Urine Leukocyte Esterase 3+ (NEGATIVE) Urine RBC 0-2 /HPF (0 - 2) Urine WBC 5-10 /HPF (0 - 2) Urine Squamous Epithelial Cells Few /LPF (NONE/OCC) Urine Bacteria Few /HPF (NONE) Sodium Level 145 MMOL/L (136-145) Potassium Level 4.3 MMOL/L (3.5-5.1) Chloride Level 107 MMOL/L (98-107) Carbon Dioxide Level 30 MMOL/L (21-32) Anion Gap 8 mmol/L (5-15) Blood Urea Nitrogen 16 mg/dL (7-18) Creatinine 0.8 MG/DL (0.55-1.30) Estimat Glomerular Filtration Rate > 60 mL/min (>60) Glucose Level 100 MG/DL (74-106) Calcium Level 10.3 MG/DL (8.5-10.1) Total Bilirubin 0.6 MG/DL (0.2-1.0) Aspartate Amino Transf (AST/SGOT) 18 U/L (15-37) Alanine Aminotransferase (ALT/SGPT) 23 U/L (12-78) Alkaline Phosphatase 93 U/L (46-116) Total Protein 8.5 G/DL (6.4-8.2) Albumin 3.7 G/DL (3.4-5.0) Globulin 4.8 g/dL Albumin/Globulin Ratio 0.8 (1.0-2.7) Salicylates Level 2.6 ug/mL (2.8-20) Urine Opiates Screen Negative (NEGATIVE) Acetaminophen Level < 2 MCG/ML (10-30) Urine Barbiturates Screen Negative (NEGATIVE) Valproic Acid (Depakene) Level 46 MCG/ML (50-100) Phencyclidine (PCP) Screen Negative (NEGATIVE) Urine Amphetamines Screen Negative (NEGATIVE) Urine Benzodiazepines Screen Negative (NEGATIVE) Urine Cocaine Screen Negative (NEGATIVE) Urine Marijuana (THC) Screen Negative (NEGATIVE) Serum Alcohol < 3 mg/dL (Donato Landeros MD) Last Vital Signs Date Time Temp Pulse Resp B/P (MAP) Pulse Ox O2 Delivery O2 Flow Rate FiO2 06/07/18 18:43 98.5 79 20 132/85 98 Room Air 98.5 Status: improved (Kevin SmithACarlos) Status: improved (Donato Landeros MD) Disposition: HOME, SELF-CARE Condition: Stable Scripts Prednisone* (PREDNISONE*) 20 Mg Tablet 40 MG ORAL DAILY, #10 TAB Prov: Donato Landeros MD 06/08/18 Albuterol Sulfate* (ALBUTEROL SULFATE MDI*) 8.5 Gm Hfa.aer.ad 2 PUFF INH Q6H, #1 EA 0 Refills Prov: Donato Landeros MD 06/08/18 Amoxicillin* (AMOXIL*) 500 Mg Capsule 500 MG ORAL THREE TIMES A DAY, #21 CAP Prov: Donato Landeros MD 06/08/18 Quetiapine Fumarate* (SEROQUEL*) 200 Mg Tablet 200 MG ORAL DAILY, #30 TAB Prov: Donato Landeros MD 06/08/18 Divalproex Sodium* (DEPAKOTE ER*) 500 Mg Tab.er.24h 500 MG ORAL DAILY, #30 TAB Prov: Donato Landeros MD 06/08/18 Kevin Smith Jun 07, 2018 18:59 Donato Landeros MD Jun 08, 2018 04:37
[2018-06-07 19:29] LABS: BASOPHILS % (AUTO) 1.5 % (0.0-2.0); EOSINOPHILS % (AUTO) 1.6 % (0.0-3.0); HEMATOCRIT 35.5 % (37.0-47.0); HEMOGLOBIN 10.9 G/DL (12.0-16.0); LYMPHOCYTES % (AUTO) 50.3 % (20.0-45.0); MEAN CORPUSCULAR VOLUME 84 FL (80-99); MONOCYTES % (AUTO) 4.5 % (1.0-10.0); NEUTROPHILS % (AUTO) 42.2 % (45.0-75.0); PLATELET COUNT 209 K/UL (150-450); RED BLOOD COUNT 4.25 M/UL (4.20-5.40); RED CELL DISTRIBUTION WIDTH 13.4 % (11.6-14.8); WHITE BLOOD COUNT 6.2 K/UL (4.8-10.8)
[2018-06-07 19:51] LABS: APPEARANCE,URINE CLEAR; BILIRUBIN, URINE 1+ (NEGATIVE); GLUCOSE, URINE (UA) NEGATIVE (NEGATIVE); KETONES,URINE 1+ (NEGATIVE); LEUKOCYTE ESTERASE ,URINE 3+ (NEGATIVE); NITRITE,URINE NEGATIVE (NEGATIVE); PH,URINE 6 (4.5-8.0); PROTEIN,URINE 2+ (NEGATIVE); UROBILINOGEN,URINE 8 MG/DL (0.0-1.0)
[2018-06-07 19:52] LABS: ANION GAP 8 mmol/L (5-15); BLOOD UREA NITROGEN 16 mg/dL (7-18); CALCIUM 10.3 MG/DL (8.5-10.1); CARBON DIOXIDE 30 MMOL/L (21-32); CHLORIDE 107 MMOL/L (98-107); COLOR,URINE YELLOW; CREATININE 0.8 MG/DL (0.55-1.30); POTASSIUM 4.3 MMOL/L (3.5-5.1); SODIUM 145 MMOL/L (136-145)
[2018-06-07 19:57] LABS: ALANINE AMINOTRANSFERASE 23 U/L (12-78); ALBUMIN 3.7 G/DL (3.4-5.0); ALBUMIN/GLOBULIN RATIO 0.8 (1.0-2.7); ALKALINE PHOSPHATASE 93 U/L (46-116); ASPARTATE AMINO TRANSFERASE 18 U/L (15-37); BILIRUBIN,TOTAL 0.6 MG/DL (0.2-1.0)
[2018-06-07] MEDS ORDERED: Albuterol/Ipratropium 3ml neb HHN ONE (20:00)
[2018-06-08 00:02] VITALS: BP 161/84
[2018-06-08] MEDS ORDERED: DEPAKOTE ER500 MG ORAL (03:03)
[2018-06-08] MEDS ORDERED: SEROQUEL200 MG ORAL (03:03)
[2018-06-08 03:10] VITALS: BP 162/82
[2018-06-08 03:12] VITALS: BP 162/82
[2018-06-08] MEDS ORDERED: ALBUTEROL SULF8.5 GM INH (04:24)
[2018-06-08] MEDS ORDERED: AMOXICILLIN500 MG ORAL (04:24)
[2018-06-08] MEDS ORDERED: PREDNISONE20 MG ORAL (04:24)
== END 2018-06-08 03:12 | disposition home or self-care (01) ==
LOC: EDBD 17:21 → EMR 17:55
DX: F91.9 Conduct disorder, unspecified (principal); J44.9 Chronic obstructive pulmonary disease, unspecified; E11.9 Type 2 diabetes mellitus without complications; I10 Essential (primary) hypertension
CPT/HCPCS: 36415; 80053; 80164; 80307; 80329; 81003; 82962; 85025; 94640; 94664; 96372; 99284; J1200; J7620